=== PATIENT | female | born 1965 | race Caucasian/White ===

== ENCOUNTER 2018-12-24 18:29 | Emergency (ER) | payer MEDICAID, OTHER ==
[~2018-12-24] VITALS: Ht 165.1 cm; Wt 91.6 kg
[~2018-12-24 18:29] MED LIST: HYDR-3026 PO; HYDR28.34 TD
--- NOTE | 2018-12-24 18:42 | NUR ---
BIB DAUGHTER, C/O SOB X 2DAYS, FEELING THAT SHE CAN'T GET ENOUGH AIR & THROAT PAIN PER DAUGHTER, TO ER BED 11, HOOKED TO MONITOR, AWAITING MD CIFUENTES
--- NOTE | 2018-12-24 19:00 | NUR ---
CORTNEY CAT AT BEDSIDE
[2018-12-24] MEDS ORDERED: IBUPROFEN 600 MG TABLET PO ONE ×2 (19:22→19:30)
--- NOTE | 2018-12-24 19:27 | NUR ---
Patient discharged to home in stable condition. Written and verbal after care instructions given. Patient verbalizes understanding of instruction.
[2018-12-24 19:28] VITALS: BP 111/75
== END 2018-12-24 19:29 | disposition home or self-care (01) ==
LOC: ER 18:30
DX: J02.9 Acute pharyngitis, unspecified (principal); J45.909 Unspecified asthma, uncomplicated
CPT/HCPCS: 99282; A4606

== ENCOUNTER 2019-04-19 19:00 | Emergency (ER) | payer OTHER ==
[~2019-04-19] VITALS: Ht 165.1 cm; Wt 70.8 kg
[2019-04-19] MEDS ORDERED: ALBUTEROL FS 2.5 MG/3 ML VIAL.NEB NEB ONE (19:30)
[2019-04-19] MEDS ORDERED: predniSONE 20 MG TABLET ONE (19:30)
[2019-04-19] MEDS ORDERED: predniSONE 20 MG TABLET PO ONE (19:30)
[2019-04-19] MEDS ORDERED: IPRATROPIUM NEB FS 0.5 MG/2.5 ML AMPUL.NEB NEB ONE (19:30)
--- NOTE | 2019-04-19 19:33 | NUR ---
PT PRESENTED TO THE ER WITH A C/O COUGH WITH CONGESTION. PT IS ON THE MONITOR AND CONTINUOUS PULSE OX. IZABELLA, USER EXPERIENCE DEVELOPER IS AT THE BEDSIDE FOR BLOOD DRAW.
[2019-04-19 19:43] LABS: BASOPHILS % (AUTO) 0.6 % (0.0-2.0); HEMATOCRIT 35 % (33-45); HEMOGLOBIN 11.9 g/dL (11.5-14.8); LYMPHOCYTES # (AUTO) 2.9 /CMM (0.8-4.8); LYMPHOCYTES % (AUTO) 38.2 % (20.0-44.0); MEAN CORPUSCULAR HGB CONC 34 g/dl (31.0-36.0); MEAN CORPUSCULAR VOLUME 89 fL (82-100); MONOCYTES # (AUTO) 0.4 /CMM (0.1-1.30); MONOCYTES % (AUTO) 5.2 % (2.0-12.0); NEUTROPHILS # (AUTO) 4.1 /CMM (1.8-8.9); PLATELET COUNT (AUTO) 336 /CMM (150-450); RED BLOOD CELL COUNT(AUTO) 3.99 MIL/uL (4.0-5.2); WHITE BLOOD COUNT (AUTO) 7.5 K/uL (4.3-11.0)
--- NOTE | 2019-04-19 19:50 | NUR ---
XRAY IN PROGRESS AT THE BEDSIDE.
[2019-04-19 20:00] LABS: ALANINE AMINOTRANSFERASE 20 U/L (12-78); ALBUMIN 3.4 g/dL (3.4-5.0); ALKALINE PHOSPHATASE 63 U/L (46-116); BILIRUBIN,TOTAL 0.3 mg/dL (0.2-1.0); CALCIUM, SERUM 9.1 mg/dL (8.5-10.1); CARBON DIOXIDE 27 mmol/L (21-32); CHLORIDE 103 mmol/L (98-107); CREATININE 0.8 mg/dL (0.6-1.3); GLUCOSE 102 mg/dL (74-106); POTASSIUM 4.4 mmol/L (3.5-5.1); SODIUM SERUM 140 mmol/L (136-145); TOTAL PROTEIN, SERUM 7.9 g/dL (6.4-8.2); UREA NITROGEN, BLOOD 18 mg/dL (7-18)
--- NOTE | 2019-04-19 20:06 | NUR ---
EKG IN PROGRESS AT THE BEDSIDE.
[2019-04-19 20:13] LABS: ASPARTATE AMINOTRANSFERASE 15 U/L (15-37)
[2019-04-19] MEDS ORDERED: ALBUTEROL FS 2.5 MG/3 ML VIAL.NEB ONE (20:27)
[2019-04-19] MEDS ORDERED: IPRATROPIUM NEB FS 0.5 MG/2.5 ML AMPUL.NEB ONE (20:27)
--- NOTE | 2019-04-19 21:20 | NUR ---
Patient discharged to home in stable condition. Written and verbal after care instructions given. Patient verbalizes understanding of instruction AND RX. PT'S FAMILY IS AT THE BEDSIDE AND IS DRIVING THE PT HOME. VSS. NAD NOTED.
[2019-04-19 21:21] VITALS: BP 127/83
== END 2019-04-19 21:22 | disposition home or self-care (01) ==
LOC: ER 19:00
DX: J18.9 Pneumonia, unspecified organism (principal); J45.909 Unspecified asthma, uncomplicated; R07.9 Chest pain, unspecified
CPT/HCPCS: 36415; 71045; 80048; 80076; 84484; 85025; 93005; 94640; 99284; J7512

== ENCOUNTER 2021-05-21 19:16 | Emergency (ER) | payer OTHER ==
[~2021-05-21] VITALS: Ht 170.2 cm; Wt 65.8 kg
[~2021-05-21 19:16] MED LIST changes: -HYDR-3026 PO; +HYDR-500 PO
[2021-05-21 19:41] LABS: BILIRUBIN,URINE Negative (NEGATIVE); LEUKOCYTE ESTERASE ,URINE Negative (NEGATIVE); NITRITE, URINE Positive (NEGATIVE); PROTEIN,URINE 30 mg/dl (NEGATIVE); UGLUCOSE Negative (NEGATIVE)
--- NOTE | 2021-05-21 19:41 | NUR ---
left for ct
[2021-05-21 19:42] LABS: COLOR,URINE YELLOW (YELLOW)
--- NOTE | 2021-05-21 19:45 | NUR ---
BIBFAMILY TO ER BED 16. AAOX4. NOT IN RESP DISTRESS. AMBULATORY. BROUGHT IN FOR LLQ ABD PAIN RADIATIING TO LOWER BACK X 1 DAYS RATES PAIN 07/20. DENIES TRAUMA. MD WAS AT THE BEDSIDE FOR EVAL. ORDERS RECEIVED, NOTED AND CARRIED OUT.
[2021-05-21 19:52] LABS: BACTERIA,URINE 2+ /HPF (None Seen); SQUAMOUS EPITHELIAL CELL,UR Few /HPF (None Seen)
[2021-05-21 20:05] LABS: BASOPHILS % (AUTO) 0.6 % (0.0-2.0); EOSINOPHILS % (AUTO) 2.3 % (0.0-6.0); HEMATOCRIT 35 % (33-45); HEMOGLOBIN 11.7 g/dL (11.5-14.8); LYMPHOCYTES # (AUTO) 2.7 K/uL (0.8-4.8); MEAN CORPUSCULAR HGB CONC 34 g/dl (31.0-36.0); MEAN CORPUSCULAR VOLUME 89 fL (82-100); MONOCYTES # (AUTO) 0.4 K/uL (0.1-1.30); MONOCYTES % (AUTO) 4.7 % (2.0-12.0); NEUTROPHILS # (AUTO) 4.9 K/uL (1.8-8.9); NEUTROPHILS % (AUTO) 59.4 % (43.0-81.0); PLATELET COUNT (AUTO) 364 K/uL (150-450); RED BLOOD CELL COUNT(AUTO) 3.95 MIL/uL (4.0-5.2); WHITE BLOOD COUNT (AUTO) 8.3 K/uL (4.3-11.0)
[2021-05-21 20:12] LABS: CALCIUM, SERUM 8.8 mg/dL (8.5-10.1); CREATININE 0.7 mg/dL (0.6-1.3); POTASSIUM 3.9 mmol/L (3.5-5.1)
[2021-05-21 20:19] LABS: ALBUMIN 3.3 g/dL (3.4-5.0); BILIRUBIN,DIRECT 0.1 mg/dL (0.0-0.2); BILIRUBIN,TOTAL 0.3 mg/dL (0.2-1.0); TOTAL PROTEIN, SERUM 7.6 g/dL (6.4-8.2)
[2021-05-21] MEDS ORDERED: CEPH500C2 PO (20:31)
[2021-05-21] MEDS ORDERED: HYDR-3976 GT (20:31)
--- NOTE | 2021-05-21 20:38 | NUR ---
Patient discharged to home in stable condition. Written and verbal after care instructions given. Patient verbalizes understanding of instruction.
[2021-05-21 20:48] VITALS: BP 118/70
== END 2021-05-21 20:49 | disposition home or self-care (01) ==
LOC: ER 19:18
DX: N39.0 Urinary tract infection, site not specified (principal); R10.32 Left lower quadrant pain; J45.909 Unspecified asthma, uncomplicated; Z79.899 Other long term (current) drug therapy
CPT/HCPCS: 36415; 80048-TC; 80076-TC; 81001; 83690-TC; 85025-TC; 87086-TC; 87186-TC

== ENCOUNTER 2025-10-09 10:12 | Emergency (ER) | payer OTHER ==
[~2025-10-09] VITALS: Ht 165.1 cm; Wt 81.6 kg
[~2025-10-09 10:12] MED LIST changes: +CEPH500C2 PO; +HYDR-3976 GT
[2025-10-09 10:20] VITALS: TEMP 98
[2025-10-09 10:38] LABS: PLATELET COUNT (AUTO) 302 K/uL (150-450); RED BLOOD CELL COUNT(AUTO) 4.36 MIL/uL (4.0-5.2); RED CELL DISTRIBUTION WIDTH 13.6 % (11.5-15.0); WHITE BLOOD COUNT (AUTO) 6.5 K/uL (4.3-11.0)
[2025-10-09 10:51] LABS: ASPARTATE AMINOTRANSFERASE 16.0 U/L (15-37); CALCIUM, SERUM 9.3 mg/dL (8.5-10.1); CREATININE 0.7 mg/dL (0.6-1.3); SODIUM SERUM 139.0 mmol/L (136-145); TOTAL PROTEIN, SERUM 7.9 g/dL (6.4-8.2); UREA NITROGEN, BLOOD 13.0 mg/dL (7-18)
[2025-10-09 10:57] LABS: APPEARANCE,URINE CLEAR (CLEAR); BLOOD, URINE NEGATIVE Ery/uL (NEGATIVE); LEUKOCYTE ESTERASE ,URINE NEGATIVE (NEGATIVE); NITRITE, URINE NEGATIVE (NEGATIVE); UGLUCOSE NEGATIVE (NEGATIVE)
[2025-10-09] MEDS ORDERED: IOHEXOL-350 100 ML VIAL IV ONE (11:16)
[2025-10-09] MEDS: IV NS 0.9% 1,000 ML BAG IV ONE (11:17)
[2025-10-09] MEDS ORDERED: MAG HYDROX/AL HYDROX/SIMETH 30 ML UDC ONE (11:19)
[2025-10-09] MEDS ORDERED: FAMOTIDINE/PF INJ 20 MG/2 ML VIAL IV ONE (11:19)
[2025-10-09] MEDS ORDERED: ONDANSETRON HCL/PF 4 MG/2 ML VIAL ONE ×2 (11:19→13:52)
[2025-10-09] MEDS: ONDANSETRON HCL/PF 4 MG/2 ML VIAL IVP ONE (11:36)
[2025-10-09] MEDS: MAG HYDROX/AL HYDROX/SIMETH 30 ML UDC PO ONE (11:42)
[2025-10-09] MEDS: FAMOTIDINE/PF INJ 20 MG/2 ML VIAL IV ONE (11:42)
[2025-10-09 11:48] LABS: LDL 136 mg/dL (0-99)
[2025-10-09] MEDS ORDERED: MORPHINE SULFATE INJ 4 MG/ML DISP.SYRIN ONE (13:52)
[2025-10-09] MEDS: ONDANSETRON HCL/PF - ER 4 MG/2 ML VIAL IV ONE (13:55)
[2025-10-09] MEDS: MORPHINE SULFATE INJ 2 MG/ML DISP.SYRIN IV ONE (13:56)
[2025-10-09] MEDS ORDERED: ONDA4TAB11 PO (13:57)
[2025-10-09] MEDS ORDERED: HYDR-4209 PO (13:57)
[2025-10-09] MEDS ORDERED: IBUP-1490 PO (13:57)
[2025-10-09 15:21] VITALS: BP 129/75; O2SAT 98
== END 2025-10-09 15:22 | disposition home or self-care (01) ==
LOC: ER 10:12
DX: K85.90 Acute pancreatitis without necrosis or infection, unspecified (principal); I10 Essential (primary) hypertension; J45.909 Unspecified asthma, uncomplicated
CPT/HCPCS: 99285; 74177; 96374; 76705; 96375; 96361; 80061; 96376; 85025; 80048; 83690; 80076; 81003; 36415; J2270; J1308; J2405 ×3; J7030; Q9967